=== PATIENT | female | born 1995 | race Caucasian/White ===

== ENCOUNTER 2025-06-02 14:27 | Emergency (ER) | payer OTHER, SELFPAY ==
[2025-06-02 14:35] VITALS: BP 134/80; PULSE 113; RESP 20; TEMP 36.3; O2SAT 100
--- OUTSIDE RECORDS SUMMARY | 2025-06-02 14:35 | XMS_ITS | Encounter Summary ---
Author Organization [facility] Address [address] [place] [address] Care Team Providers Care Magnetic Tape Typewriter Operator Name Role Phone Unavailable Primary Care Provider Unavailabl e Prior Encounters Date Type Department Care Team Description 03/22/2024 7:00 AM CDT Office Visit [facility] [address] [place] [address] Kae Jansen, MIRLANDE Plan of Treatment Not on file Procedures Procedure Name Priority Date/Time Associated Diagnosis Comments PANORAMIC RADIOGRAPHIC IMAGE Routine 03/22/2024 7:00 AM CDT BITEWING - SINGLE RADIOGRAPHIC IMAGE Routine 03/22/2024 7:00 AM CDT LIMITED ORAL EVALUATION - PROBLEM FOCUSED Routine 03/22/2024 7:00 AM CDT Visit Diagnoses Not on file Insurance [facility]
--- OUTSIDE RECORDS SUMMARY | 2025-06-02 14:35 | XMS_ITS | Clinical Summary ---
Author Organization [facility] Address [address] [place] [address] Care Team Providers Care Phlebotomist Supervisor/Instructor Name Role Phone Alex Concepcion MD Primary Care Provider [phone] Source Comments [facility],non-owned Affiliates and Associated Physician Practices is amultiple site organization consisting of ambulatory clinics and hospital [place]in [place]. This disclosure is being madepursuant to the Care Everywhere program and may not contain all information available regarding this patient. Last updated 18.[facility] Allergies No known active allergies Medications * This document contains information received from the source organization and may not represent a complete record from that organization. * Be aware that medications may not be up to date on this document. Alwaysverify current medications with the patient. norethindrone-e thinyl estradiol (LOESTRIN 1.530) 1.5-30 MG-MCG tabletIndicatio ns:regulate periods Take 1 Tab by mouth once daily. Indications: regulate periods Active topiramate (TOPAMAX) 25 MG tabletIndicatio ns:Migraine Take 2 Tabs by mouth 2 times daily. Indications: Migraine Headache 60 Tab 3 4 Active venlafaxine XR 24hr (EFFEXOR XR) 75 MG capsule Take 75 mg by mouth 8 Active hydrOXYzine HCl (Atarax) 25 MG tabletIndicatio ns:Anxiety Take 1 (one) tablet by mouth 3 times daily as needed (anxiety) Reasons: Feeling Anxious 90 tablet 3 Active sertraline (Zoloft) 50 MG tabletIndicatio ns:Major Depressive Disorder Take 1 (one) tablet by mouth once daily Reasons: Major Depressive Disorder 30 tablet 3 Active Active Problems Problem Noted Date Diagnosed Date Suicide attempt by drug ingestion 03/18/2014 Assessment & Plan (03/19/2014 10:54 AM CDT): Assessment: 18 yo with h/o depression who ingested fluoxetine, excedrin migraine and equate menstrual relief in a suicide attempt. Labs since admission would indicate the ingestion was not as severe as reported. She has been doing well and is asymptomatic this AM. She is medically cleared for disposition per poison control. 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 Labs since admission would indicate the ingestion was not as severe as reported. She has been doing well and is asymptomatic this AM. She is medically cleared for disposition per psych. 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 Family History Medical History Relation Name Comments Depression Mother Endometriosis Sister 1 Depression Sister 2 h/o suicide att empt Relation Name Status Comments Mother Sister 1 Sister 2 Social History Tobacco Use Types Packs/Day Years Used Date Smoking Tobacco: Never Smokeless Tobacco: Never Tobacco Cessation:Counseling Given: Not Answered Alcohol Use Standard Drinks/Week Comments Not Currently 0 (1 standard drink = 0.6 oz pur e alcohol) occasionally Comments No Sex and Gender Information Value Date Recorded Sex Assigned at Not on file Legal Sex Female 4:23 PM CDT Gender Identity Not on file Sexual Orientation Not on file Last Filed Vital Signs Vital Sign Reading Time Taken Comments Blood Pressure 123/89 04/14/2023 11:28 AM CDT Pulse 102 04/14/2023 11:28 AM CDT Temperature 36.8 C (98.2 F) 04/14/2023 11:28 AM CDT Respiratory Rate 20 04/14/2023 11:2 8 AM CDT Oxygen Saturation 96% 06/30/2019 12: 44 PM CDT Inhaled Oxygen Concentration - - Weight 105.6 kg (232 lb 12.8 oz) 2022 11:28 AM CDT Height 160 cm (5' 3) 04/14/2023 11:28 AM CDT Body Mass Index 41.24 04/14/2023 11:28 AM CDT Plan of Treatment Health Maintenance Due Date Last Done Comments HIV SCREENING 2011 HEPATITIS C SCREENING 10/05/2014 DTAP/TDAP/TD VACCINES (1 - Tdap) 2015 HEPATITIS B VACCINE (1 of 3 - 19+ 3-dose series) 2015 PAP SMEAR 2017 HPV VACCINE (1 - 3-dose SCDM series) 2023 DEPRESSION SCREENING 08/31/2024 COVID-19 VACCINE (3 - 2024-2 6 season) 2025 03/06/2021, 02/06/2021 INFLUENZA VACCINE (#1) 2025 07/01/2017 ZOSTER VACCINE (1 of 2) 2046 HIB VACCINE Aged Out No longer eligi ble based on patient's age to complete this topic MENINGOCOCCAL (Group B) VACCINE SHARED DECISION-MAKING Aged Out No longer eligible based on patient's age to complete this topic MENINGOCOCCAL GROUPS A/C/Y/W VACCINE Aged Out No longer eligible b ased on patient's age to complete this topic PNEUMOCOCCAL VACCINE Aged Out No long er eligible based on patient's age to complete this topic Insurance [employer] - PENDING Care Teams Phlebotomist Supervisor/Instructor Relationship Specialty Start Date End Date Alex Concepcion MD [address] [place] [address] PCP - General 03/26/20
--- OUTSIDE RECORDS SUMMARY | 2025-06-02 14:35 | XMS_ITS | Clinical Summary ---
Author Organization [facility] Address [address] [place] [address] Care Team Providers Care Freight Forwarder Name Role Phone Yesi Maldonado NP Primary Care Provider [phone] Allergies No known active allergies Medications acetaminophen (TYLENOL) 325 mg tablet Take 325 mg by mouth every 4 (four) hours as needed 6 Active SUMAtriptan (IMITREX) 25 mg tabletIndicati ons:Migraine Take 25 mg by mouth once as needed for migraine May repeat dose once in 2 hours if no relief. Do not exceed 2 doses in 24 hours. Active bisacodyl EC (DULCOLAX EC) 5 mg EC tabletIndicati ons:constipati on Take 1 tablet (5 mg total) by mouth 2 (two) times a day 14 tablet 0 Active Additional Information Patient not taking.Reported on 10/08/2021 Lo Loestrin Fe 1 mg-10 mcg (24)/10 mcg (2) tablet per tablet Take 1 tablet by mouth daily 84 tablet 1 2 Active venlafaxine XR (EFFEXOR-XR) 75 mg 24 hr capsuleIndicat ions:Anxiety and depression Take 1 capsule by mouth once daily 90 capsule 2 Active topiramate (TOPAMAX) 50 mg tablet Take 1 tablet by mouth twice daily 60 tablet 2 Active promethazine-D M (PROMETHAZINE- DM) 1.25-3 mg/mL syrup Take 5 mL by mouth 4 (four) times a day as needed for cough (And runny nose) Collaborating physician Alex Hong MD 118 mL 1 3 Active albuterol HFA (PROVENTIL HFA,VENTOLIN HFA,PROAIR HFA) 90 mcg/actuation inhaler Inhale 2 puffs every 4 (four) hours as needed for wheezing (And bronchospastic cough) Collaborating physician Alex Hong MD 1 each 3 Active Active Problems Problem Noted Date Diagnosed Date Bronchospasm with bronchitis, acute 11/13/2022 Acute left otitis media 11/13/2022 Anxiety and depression 03/16/2018 Assessment & Plan (12/29/2019 1:28 PM CDT): Stable on Effexor XR 75 mg once daily. Will continue current medication and have her follow-up in 6 months for recheck Assessment & Plan (10/05/2018 9:37 AM RHEUMATOLOGY SPECIALIST): Continue effexor xr 75mg daily. Doing well with current medication. F/u 6 months and prn Migraine without aura and wi thout status migrainosus, not intractable 09/12/2017 Assessment & Plan (12/29/2019 1:29 PM CDT): Success with preventative medicine Topamax 50 mg at bedtime. Will continue her on this dose. Follow-up 6 months for recheck Assessment & Plan (10/05/2018 9:37 AM RHEUMATOLOGY SPECIALIST): Headaches are improving with treatment. Continue current treatment regimen. Renewed sumatriptan. She has been on oral sumatriptan. Takes topamax and has helped with prevention of headaches. Scoliosis deformity of spine 01/21/2017 Suicide attempt by drug ingestion 03/18/2014 Overview (03/18/2018): Last Assessment & Plan: Assessment: 18 yo with h/o depression who ingested fluoxetine, excedrin migraine and equate menstrual relief in a suicide attempt. Labs since admission would indicate the ingestion was not as severe as reported. She has been doing well and is asymptomatic this AM. She is medically cleared for disposition per poison control. 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 I believe these are likely pinworms, not tapeworms. Discussed diagnoses, gave printed information from [employer] on transmission. Recommended treatment for live in boyfriend and roommate. Discussed symptoms. F/u prn Insect bite of left thigh with local reaction 02/13/20 18 03/22/2018 Immunizations Immunization Administration Dates Next Due Influenza, Unspecified 09/10/2018(Deferr ed: Patient ill today),07/01/2017 Moderna SARS-CoV-2 Monovalen t Vaccination (12+ YRS) 03/06/2021,02/06/2021 Surgical History Surgery Date Site/Laterality Comments TONSILLECTOMY 08/31/2015 - 08/30/2016 TONSILLECTOMY Medical History Medical History Date Comments Anxiety Anxiety; Comment s: ABRAHAM 02/20/2015 - Depression Depression disor monica; Comments: ABRAHAM 02/20/2015 - Migraines Family History * Patient is adopted Medical History Relation Name Comments Bipolar disorder Mother Maternal grandmother Breast cancer Mother Maternal grandmother Cancer , breast; Depression Mother Maternal grandmother Migraines Mother Maternal grandmother Relation Name Status Comments Mother Maternal grandmother Social History Tobacco Use Types Packs/Day Years Used Date Smoking Tobacco: Never Smokeless Tobacco: Never Alcohol Use Standard Drinks/Week Comments Yes 0 (1 standard drink = 0.6 oz pur e alcohol) PHQ-2 Answer Date Recorded PHQ-2 Total Score (If total score is 3 or more points, staff should administer the PHQ-9) 0 04/15/2021 Personal Safety Answer Date Recorded Have you ever been in or are you currently in a harmful physical or emotional relationship or is someone making you feel afraid or unsafe? Denies 01/09/2024 Comments No Sex and Gender Information Value Date Recorded Sex Assigned at Not on file Legal Sex Female 3:42 AM RHEUMATOLOGY SPECIALIST Gender Identity Female 06/19/2020 1:11 AM CDT Sexual Orientation Bisexual 06/01/2025 1: 35 PM CDT Obstetrics History Para Term AB IAB SAB Ectopic Multiple Livin g Live Births 0 0 0 0 0 0 0 0 0 0 0 Last Filed Vital Signs Vital Sign Reading Time Taken Comments Blood Pressure 113/65 01/09/2024 3:55 AM CDT Pulse 105 01/09/2024 3:55 AM CDT Temperature 36.4 C (97.5 F) 01/09/2024 3:55 AM CDT Respiratory Rate 18 01/09/2024 3:55 AM CDT Oxygen Saturation 95% 01/09/2024 3:55 AM CDT Inhaled Oxygen Concentration - - Weight 104.3 kg (230 lb) 11/13/2022 2:30 PM CDT Height 160 cm (5' 3) 11/13/2022 2:30 PM CDT Body Mass Index 40.74 11/13/2022 2:30 PM CDT Plan of Treatment Health Maintenance Due Date Last Done Comments Cervical Cancer Screening 1996 Hepatitis C Screening 1996 DTaP/Tdap/Td Vaccine (2 - Tdap) 2007 05/27/2002 Varicella Vaccines (1 of 2 - 13+ 2-dose series) 2009 Hepatitis B Screening 2014 Regular Well Visit/Exam 18-64 06/19/2021 06/19/2020, 01/12/2019, 04/01/2017 Depression Screening 04/15/2022 04/15/2021, 04/08/2021, 12/29/2019, Additional history exists HPV Vaccines (1 - 3-dose SCDM series) 2023 Covid-19 Vaccine ( season) 2025 03/06/2021, 02/06/2021 Influenza Vaccine (#1) 2025 07/01/2017 Pneumococcal vaccine <65 Aged Out No longer eligible based on patient's age to complete this topic Insurance [facility] [employer] [place] Care Teams Freight Forwarder Relationship Specialty Start Date End Date Yesi Maldonado NP PCP - General 10/24/20
--- OUTSIDE RECORDS SUMMARY | 2025-06-02 14:35 | XMS_ITS | Clinical Summary ---
Author Organization [facility] Address [address] [place] [address] Care Team Providers Care Window Air Conditioner Installer Name Role Phone Unavailable Primary Care Provider Unavailabl e Medications hydrOXYzine HCL (ATARAX) 25 mg tablet Take 25 mg by mouth 3 (three) times a day if needed. 3 Active methylPREDNISol one (MEDROL DOSPAK) 4 mg tablet TAKE BY MOUTH DIRECTED ON INSIDE OF PACKAGE 4 Active norethindrone ac-eth estradioL (LOESTRIN) 1.5-30 mg-mcg tablet tablet Take by mouth. A ctive PARoxetine CR (PAXIL-CR) 25 mg 24 hr tablet Take 25 mg by mouth 1 (one) time each day. 4 Active sertraline (ZOLOFT) 50 mg tablet Take 50 mg by mouth 1 (one) time each day. 3 Active SUMAtriptan (IMITREX) 25 mg tablet Take 25 mg by mouth. Active SUMAtriptan (IMITREX) 50 mg tablet Take 50 mg by mouth. Active triamcinolone (KENALOG) 0.1 % cream APPLY CREAM EXTERNALLY TO AFFECTED AREA TWICE DAILY 4 Active Celsa Fe 09/19, 28, 1 mg-20 mcg (21)/75 mg (7) tablet Take 1 tablet by mouth 1 (one) time each day. 4 Active Active Problems Problem Noted Date Diagnosed Date Acute left otitis media 11/13/2022 Bronchospasm with bronchitis, acute 11/13/2022 Anxiety and depression 03/16/2018 Overview (03/23/2024): Last Assessment & Plan: Stable on Effexor XR 75 mg once daily. Will continue current medication and have her follow-up in 6 months for recheck Migraine without aura and wi thout status migrainosus, not intractable 09/12/2017 Overview (03/23/2024): Last Assessment & Plan: Success with preventative medicine Topamax 50 mg at bedtime. Will continue her on this dose. Follow-up 6 months for recheck Scoliosis deformity of spine 01/21/2017 Family history of malignant neoplasm of breast 0 05/18/2013 Overview (03/23/2024): Biological MGM, unknown age Family history of malignant neoplasm of ovary Overview (03/23/2024): Biological mother age 38 Social History Tobacco Use Types Packs/Day Years Used Date Smoking Tobacco: Never Assessed Comments Unknown Sex and Gender Information Value Date Recorded Sex Assigned at Not on file Legal Sex Female 12:37 PM PDT Gender Identity Not on file Sexual Orientation Not on file Plan of Treatment Health Maintenance Due Date Last Done Comments Dental Oral Exam 1996 Dental Prophylaxis 1996 Dental X-Ray: Bitewings 1996 Dental X-Ray: Full Mouth 1996 Dental X-Ray: Panoramic 03/23/2027 03/22/2024 Procedures Procedure Name Priority Date/Time Associated Diagnosis Comments PANORAMIC RADIOGRAPHIC IMAGE Routine 03/22/2024 7:00 AM CDT from Last 3 Months or Most Recently Relevant to Health Maintenance Insurance [address] [place], [place] [id number] [place] [address]
--- OUTSIDE RECORDS SUMMARY | 2025-06-02 14:35 | XMS_ITS | Clinical Summary ---
Author Organization [facility] Address [address], [facility] [address] [place] [address] Phone Care Team Providers Care Hand Tapper Name Role Phone Provider, None Primary Care Provider Unavailabl e Allergies No known active allergies Medications citalopram (CELEXA) 10 MG Tablet Take by mouth. 4 Active Norethindrone Acet-Ethinyl Est 1.5-30 MG-MCG Tablet Take by mouth. A ctive topiramate (TOPAMAX) 25 MG Tablet Take by mouth. 4 Active traMADol (ULTRAM) 50 MG Tablet Take by mouth. 4 Active acetaminophen (TYLENOL) 325 MG Tablet Take 1 Tab by mouth every 4 hours as needed for Pain or Fever (for temperature greater than 100.4 F). Do not exceed 4000 mg of acetaminophen in 24 hour from all sources. 6 Active HYDROcodone-ac etaminophen (NORCO) 5-325 MG Tablet Take 1-2 Tabs by mouth every 4 hours as needed for Pain. 40 Tab 0 6 Active Additional Information Patient not taking.Reported on 03/09/2020 acetaminophen- codeine (TYLENOL/CODEI NE #3) 300-30 MG Tablet Take 1-2 Tabs by mouth every 4 hours as needed for Pain. 30 Tab 0 6 Active LO LOESTRIN FE 1 MG-10 MCG / 10 MCG Tablet TAKE 1 TABLET BY MOUTH ONCE DAILY 0 Active venlafaxine (EFFEXOR-XR) 75 MG CAPSULE SR 24 HR TAKE 1 CAPSULE BY MOUTH ONCE DAILY 0 Active Topiramate 50 MG Tablet Take 1 Tab by mouth 2 times daily. 0 Active SUMAtriptan (IMITREX) 50 MG Tablet Take 50 mg by mouth once as needed. Use as directed. May repeat dose in 2 hours if headache recurs. Active albuterol (PROAIR HFA) 108 (90 Base) MCG/ACT Aerosol SolutionIndica tions:Cough take 2 Puffs by inhalation every 4 hours as needed for Wheezing or Cough. 1 Inhaler 0 Active Active Problems No known active problems Encounters Date Type Department Care Team Description 05/23/2025 Telephone [facility] - [address] [place] [address] Dea Greco, DA, BETITO from Last 3 Months Immunizations Immunization Administration Dates Next Due Influenza Vaccine,unspecified Formulation 2016 Family History * Patient is adopted Relation Name Status Comments Father Alive Mother Alive Social History Tobacco Use Types Packs/Day Years Used Date Smoking Tobacco: Never Smokeless Tobacco: Never Tobacco Cessation:Counseling Given: Yes Alcohol Use Standard Drinks/Week Comments No 0 (1 standard drink = 0.6 oz pur e alcohol) Comments No Sex and Gender Information Value Date Recorded Sex Assigned at Female 03/13/2025 9:38 PM CDT Legal Sex Female 8:49 PM CDT Gender Identity Female 03/13/2025 9:38 PM CDT Sexual Orientation Bisexual 03/13/2025 9: 38 PM CDT Last Filed Vital Signs Vital Sign Reading Time Taken Comments Blood Pressure 118/64 03/09/2020 4:10 PM CDT Pulse 98 03/09/2020 4:10 PM CDT Temperature 37.2 C (98.9 F) 03/09/2020 4:10 PM CDT Respiratory Rate 20 03/09/2020 4:10 PM CDT Oxygen Saturation 98% 03/09/2020 4:10 PM CDT Inhaled Oxygen Concentration - - Weight 74.8 kg (165 lb) 01/07/2017 9:18 PM CDT Height 160 cm (5' 3) 01/07/2017 9:18 PM CDT Body Mass Index 29.23 01/07/2017 9:18 PM CDT Plan of Treatment Health Maintenance Due Date Last Done Comments Hepatitis C Virus (HCV) Screening 1996 TdaP Immunization 1996 Hepatitis B Immunization (1 of 3 - 19+ 3-dose series) 2015 Pap Smear 2017 Human Papillomavirus (HPV) Immunization (1 - 3-dose SCDM series) 2023 Influenza Immunization (#1) 2025 07/01/2017 SARS-COV-2 Immunization (3 - 2024- season) 2025 03/06/2021, 02/06/2021 Respiratory Syncytial Virus (RSV) Immunization (Adult) (1 - 1-dose 75+ series) 2071 Meningococcal Immunization (ACWY) Aged Out No longer eligible b ased on patient's age to complete this topic Pneumococcal Immunization Combined Aged Out No longer eligible b ased on patient's age to complete this topic Rotavirus Immunization Aged Out No lo nger eligible based on patient's age to complete this topic Insurance MEDICAID [employer] Care Teams Hand Tapper Relationship Specialty Start Date End Date Provider, None [place] PCP - General 01/30/16
--- OUTSIDE RECORDS SUMMARY | 2025-06-02 14:35 | XMS_ITS | Encounter Summary ---
Author Organization [facility] Address [address] [place] [address] Care Team Providers Care Washroom Attendant Name Role Phone Susie Plummer FULL TIME-RAIL EQUIPMENT OPERATOR Primary Care Provide r Alex Concepcion MD Primary Care Provider [phone] Encounter Details Date Type Department Care Team (Late st Contact Info) Description 03/11/2020 Lab Requisition [facility] [address] [place] [address] Miller Alvarez MD Cough Social History Tobacco Use Types Packs/Day Years Used Date Smoking Tobacco: Never Smokeless Tobacco: Never Alcohol Use Standard Drinks/Week Comments No 0 (1 standard drink = 0.6 oz pur e alcohol) Comments No Sex and Gender Information Value Date Recorded Sex Assigned at Not on file Legal Sex Female 4:23 PM CDT Gender Identity Not on file Sexual Orientation Not on file documented as of this encounter Functional Status * Is person deaf or have serious hearing difficulty? Answer Date of Assessment Author No 03/19/2014 4:39 PM CDT Suki Li RN * Is person blind or have serious difficulty seeing? Answer Date of Assessment Author No 03/19/2014 4:39 PM CDT Suki Li RN * Does person have serious difficulty walking/climbing stairs? Answer Date of Assessment Author No 03/19/2014 4:39 PM CDT Suki Li RN * Does person have difficulty dressing/bathing? Answer Date of Assessment Author No 03/19/2014 4:39 PM CDT Suki Li RN * Does person have difficulty doing errands alone? Answer Date of Assessment Author No 03/19/2014 4:39 PM PRASHANTT Suki Li RN documented as of this encounter Mental Status * Does person have difficulty concentrating/remembering/making decisions? Answer Entry Date Author No 03/19/2014 4:39 PM PRASHANTT Suki Li RN documented in this encounter Plan of Treatment Not on file documented as of this encounter Procedures Procedure Name Priority Date/Time Associated Diagnosis Comments SARS-COV-2 (COVID-19) IN HOUSE Routine 03/09/2020 4:45 PM CDT Cough documented in this encounter Results * SARS-COV-2 (COVID-19) IN HOUSE (03/09/2020 4:45 PM CDT) COVID-19 PCR Not detected Not detected, Invalid 03/11/2020 8:22 PM CDT [facility] Microbiology SPECIMEN FROM NASOPHARYNGEAL STRUCTURE / Unknown Collection / Unknown 03/09/2020 4:45 PM CDT 03/11/2020 1:51 PM CDT Narrative [facility] - 03/11/2020 8:22 PM CDT This nucleic acid amplification assay performance was validated by [facility]. This test has been authorized by the Food and Drug administration (FDA)under an Emergency Use Authorization (EUA). This test has been validated in accordance with the FDA's guidance document Policy for Diagnostic Testing in Laboratories Certified to perform High Complexity Testing under CLIA prior to Emergency Use Authorization for Coronavirus Disease-2019 during the Public Health Emergency issued on October 29, 2019. FDA independent review of this validation is pending. This test is only authorized for the duration of time the declaration that circumstances exist justifying the authorization of emergency use of in vitro diagnostic tests for detection of SARS-CoV-2 virus and/or diagnosis of COVID-19 infection under section 564(b)(1) of the Act, 21 U.S.C 360bbb-3 (b)(1), unless the authorization is terminated or revoked sooner. us Miller Alvarez MD LAB - MICROBIOLOGY ORDERABL ES Final Result [facility] [address] [place] [address], [facility] [phone] documented in this encounter Visit Diagnoses Diagnosis Cough documented in this encounter Additional Health Concerns Infection Onset Date Last Indicated Resolved Time COVID-19 Under Investigation 03/11/2020 03/09/2020 03/11/2020 8:22 PM CDT documented as of this encounter Care Teams Washroom Attendant Relationship Specialty Start Date End Date Susie Plummer, FULL TIME-RAIL EQUIPMENT OPERATOR [address] [place] [address] PCP - General Obstetrics and Gynecology 09/10/18 702/17 Alex Concepcion MD [address] [place] [address] PCP - General 03/26/20 documented as of this encounter
--- NOTE | 2025-06-02 14:41 | ED_ITS ---
HPI - Extremity Injury (Upper) General Chief Complaint: Extremity Injury, Upper Stated Complaint: Right Arm Pain/Hand Tingling Time Seen by Provider: 06/02/25 14:31 Source: patient Mode of arrival: ambulatory Limitations: no limitations History of Present Illness HPI narrative: Noel is a 29-year-old female patient presenting to the clinic today with complaints of right arm pain/hand tingling x2 weeks. She reports she has been diagnosed with tennis elbow in the past. States this pain is a lot worse. States she is having a hard time making a tight fist due to the pain. Reports when she flexes her wrist she has increase in pain with pain radiating up into the upper arm/shoulder. Has been taking Tylenol and applying lidocaine patches. Rates pain 12/08 currently. 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 Patient denies any fever, chills, rash, headache, visual changes, dizziness, cough, runny nose, sore throat, shortness of breath, chest pain, palpitations, nausea, vomiting, diarrhea, constipation, abdominal pain, or any urinary issues. PMFSH Comments At the time of my signature, I reviewed and agree with the nursing past medical, surgical, social, and family history. There is no relevant family history pertinent to the patient complaint. Exam Narrative: General: Well-developed, well nourished, in no apparent distress Head: Normocephalic, atraumatic. Cardio: Regular rate and rhythm, s1 and s2 normal, no murmur appreciated. Resp: Clear to auscultation bilaterally, no rhonchi, rales, wheezing or rubs. Musculoskeletal: No deformity, tender to palpation over the flexor carpi ulnar tendon, pain over the tendon with flexion of the wrist, pain radiating up into the upper arm shoulder area, right hand grass slightly weaker than left, grossly normal range of motion, peripheral pulse strong, no edema, no cyanosis, normal gait and station Course Course Emergency Course: Portions of this record may have been created with voice recognition software. Level of Care: Express Care Visit Vital Signs Vital signs: Vital Signs Temperature 36.3 C L 06/02/25 14:35 Pulse Rate 113 H 06/02/25 14:35 Respiratory Rate 20 06/02/25 14:35 Blood Pressure 134/80 06/02/25 14:35 Pulse Oximetry 100 06/02/25 14:35 Oxygen Delivery Room Air 06/02/25 14:35 Temperature 36.3 C L 06/02/25 14:35 Pulse Rate 113 H 06/02/25 14:35 Respiratory Rate 20 06/02/25 14:35 Blood Pressure 134/80 06/02/25 14:35 Pulse Oximetry 100 06/02/25 14:35 Oxygen Delivery Room Air 06/02/25 14:35 Vital signs reviewed MDM - Extremity Injury (Upper) MDM Narrative Medical decision making narrative: At the time of visit patient is resting comfortably on the exam table. Patient appears to be nontoxic. Complaints of right forearm pain/hand tingling x2 weeks. She reports she has been diagnosed with tennis elbow in the past. States this pain is a lot worse. States she is having a hard time making a tight fist due to the pain. Reports when she flexes her wrist she has increase in pain with pain radiating up into the upper arm/shoulder. Has been taking Tylenol and applying lidocaine patches. Rates pain 4/10 currently. 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 On exam patient has tenderness to palpation over the flexor carpi uln ar tendon, pain over the tendon with flexion of the wrist, pain radiating up into the upper arm shoulder area, right hand grass slightly weaker than left, grossly normal range of motion, peripheral pulse strong Plan: I suspect patient has Flexor carpi ulnaris tendonitis. Rx for Medrol dose pack sent to the pharmacy. Work note with light duty restrictions x 1 week given. Recommend wearing a cock up splint. Supportive measures were discussed with the patient and they voiced understanding discharge instructions and agrees to treatment plan. 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 May use blue emu, lidocaine patches, or asper cream to affected area- do not apply heat or ice directly over cream- can cause burn. Follow up with your PCP in 3-5 days if symptom persist. Patient Language: Albanian Prescriptions: New methylprednisolone [Medrol (Jeffy)] 4 mg tablets,dose pack See Rx Instructions PO .COMPLEX Qty: 21 0RF Rx Instructions: orally per package directions No Action phentermine 37.5 mg tablet paroxetine HCl 25 mg tablet extended release 24 hr PO Follow-up/Referrals: UNKNOWN,DOCTOR [Primary Care Provider] Stand Alone Forms: Work/School Release IP Time of Disposition: 14:48 Quality NIHSS Nursing Documentation ED NIHSS nursing documentation: reviewed/agree
== END 2025-06-02 14:58 | disposition home or self-care (01) ==
PROVIDERS: Emergency Provider Nurse Practitioner Family
DX: M67.833 Other specified disorders of tendon, right wrist (principal); F41.9 Anxiety disorder, unspecified; F32.A Depression, unspecified
CPT/HCPCS: 99203; G0463